=== PATIENT | female | born 1970 | race Caucasian/White ===

== ENCOUNTER 2017-01-26 08:04 | Outpatient (CLI) | payer BC | END 2017-01-26 08:05 | disposition home or self-care (01) | DX: E11.9 Type 2 diabetes mellitus without complications (principal); Z79.4 Long term (current) use of insulin; E78.2 Mixed hyperlipidemia; Z98.84 Bariatric surgery status; K91.2 Postsurgical malabsorption, not elsewhere classified ==

== ENCOUNTER 2017-05-17 11:44 | Emergency (ER) | payer BC ==
[2017-05-17] MEDS ORDERED: PROMETHAZINE INJ 25 MG in SODIUM CHLORIDE 0.9% 50 ML IV STA (14:38)
[2017-05-17] MEDS ORDERED: SODIUM CHLORIDE 0.9% 1,000 ML IV ONE (14:38)
[2017-05-17] MEDS ORDERED: HYDROmorphone 1 MG/ML SYRINGE IVP STA ×2 (14:39→15:49)
[2017-05-17] MEDS ORDERED: PROMETHAZINE 25 MG/1 ML VIAL ONE (14:40)
[2017-05-17] MEDS ORDERED: HYDROmorphone 1 MG/ML SYRINGE ONE ×2 (14:41→15:52)
--- NOTE | 2017-05-17 14:42 | ED Physician Documentation ---
History of Present Illness - Stated complaint Stated Complaint: COUGH/FEVER/VOMITING - Chief complaint Chief Complaint: General - History obtained from History obtained from: Patient - History of Present Illness Timing: Other (47-year-old woman with history of gastric bypass presents with fevers, body aches, skin crawling, nausea, vomiting, diarrhea since last night also cough. No sick contacts. Travel to [place] a month ago, no rash.) Review of Systems Ten Systems: 10 systems reviewed and negative Constitutional: reports: Fever, Chills, Myalgias, Fatigue Nose: denies: Rhinorrhea / runny nose Throat: denies: Sore throat Respiratory: reports: Cough. denies: Dyspnea GI: reports: Nausea, Vomiting, Diarrhea. denies: Abdominal Pain PD PAST MEDICAL HISTORY - Past Medical History Cardiovascular: High cholesterol Respiratory: None Neuro: None Endocrine/Autoimmune: Type 2 diabetes GI: GERD REFUGE MANAGER: None : None HEENT: None Psych: None Musculoskeletal: None Derm: None - Past Surgical History Past Surgical History: Yes General: Cholecystectomy, Gastric surgery /REFUGE MANAGER: section, Hysterectomy - Present Medications Home Medications: Ambulatory Orders Medication Instructions Recorded Confirmed Hormone Patch 1 patch ID DAILY 12/17/15 05/17/17 Escitalopram Oxalate [Lexapro] 20 mg PO DAILY 05/17/17 05/17/17 HYDROcod/ACETAM 5/325 [Barton 5/325] 1 - 2 ea PO Q6H PRN #15 tablet 05/17/17 Ondansetron HCl [Zofran] 4 mg PO Q6H PRN #10 tablet 05/17/17 Oseltamivir [Tamiflu] 75 mg PO BID #10 capsule 05/17/17 - Allergies Allergies/Adverse Reactions: Allergies Allergy/AdvReac Type Severity Reaction Status Date / Time lidocaine AdvReac Intermediate rapid Verified 05/17/17 11:56 heart rate morphine AdvReac Emesis Verified 05/17/17 11:56 - Social History Does the pt smoke?: No Smoking Status: Never smoker Does the pt drink ETOH?: Yes Does the pt have substance abuse?: No - Immunizations Immunizations are current?: Yes - POLST Patient has POLST: No PD ED PE NORMAL - Vitals Vital signs reviewed: Yes - General General: Alert and oriented X 3, No acute distress - HEENT HEENT: PERRL, EOMI, Pharynx benign - Neck Neck: Supple, no meningeal sign, No bony TTP - Cardiac Cardiac: RRR, No murmur - Respiratory Respiratory: No respiratory distress, Clear bilaterally - Abdomen Abdomen: Soft, Non tender - Derm Derm: Normal color, Warm and dry - Extremities Extremities: No edema, No calf tenderness / cord - Neuro Neuro: Alert and oriented X 3, Normal speech Results - Vitals Vitals: Vital Signs - 24 hr 05/17/17 05/17/17 11:55 14:16 Temperature 36.5 C 36.4 C L Heart Rate 93 74 Respiratory 18 16 Rate Blood Pressure 109/75 105/56 L O2 Saturation 97 95 Oxygen O2 Source Room air - Labs Labs: Laboratory Tests 05/17/17 05/17/17 14:56 14:56 Sodium 137 Potassium 3.8 Chloride 101 Carbon Dioxide 28 Anion Gap 8.0 BUN 14 Creatinine 0.7 Estimated GFR (MDRD) 90 Glucose 136 H Calcium 9.5 Total Bilirubin 0.7 AST 45 H ALT 66 H Alkaline Phosphatase 63 Total Protein 7.4 Albumin 4.2 Globulin 3.2 Albumin/Globulin Ratio 1.3 Lipase 26 Influenza A (Rapid) POSITIVE H Influenza B (Rapid) Negative Influenza Types A,B Ag + H PD MEDICAL DECISION MAKING - ED course ED course: 47-year-old woman presents with what sounds like a viral syndrome, very flulike , and is found to have influenza A. She is in with the time range for Tamiflu treatment and is given that. Feeling better after meds and fluids. Departure - Departure Disposition: 01 Home, Self Care Clinical Impression: Influenza A Condition: Good Record reviewed to determine appropriate education?: Yes Instructions: ED Flu Prescriptions: HYDROcod/ACETAM 5/325 [Barton 5/325] 1 - 2 ea PO Q6H PRN #15 tablet PRN Reason: Pain Oseltamivir [Tamiflu] 75 mg PO BID #10 capsule Ondansetron HCl [Zofran] 4 mg PO Q6H PRN #10 tablet PRN Reason: Nausea / Vomiting Forms: Activity restrictions
[2017-05-17 15:23] LABS: ALBUMIN/GLOBULIN RATIO 1.3 (1.0-2.2); BILIRUBIN,TOTAL 0.7 mg/dL (0.2-1.0); CALCIUM 9.5 mg/dL (8.5-10.3); CREATININE 0.7 mg/dL (0.4-1.0); POTASSIUM 3.8 mmol/L (3.5-5.0); TOTAL PROTEIN 7.4 g/dL (6.7-8.2)
[2017-05-17] MEDS ORDERED: OSELTAMIVIR 75 MG CAPSULE PO STA (15:49)
[2017-05-17] MEDS ORDERED: OSELTAMIVIR 75 MG CAPSULE PO ONE (15:52)
[2017-05-17 16:06] VITALS: BP 116/76
== END 2017-05-17 16:06 | disposition home or self-care (01) ==
LOC: ED 11:44
DX: J10.1 Influenza due to other identified influenza virus with other respiratory manifestations (principal); Z98.84 Bariatric surgery status; E78.00 Pure hypercholesterolemia, unspecified; E11.9 Type 2 diabetes mellitus without complications; K21.9 Gastro-esophageal reflux disease without esophagitis
CPT/HCPCS: 36415; 80053; 83690; 87275; 87276; 96374; 96375; 96376; 99283; 99284; A9270; J1170

== ENCOUNTER 2020-09-13 19:05 | Outpatient (CLI) | payer BC | END 2020-09-13 19:06 | disposition critical access hospital (66) | LOC: EMS 19:05 | PROVIDERS: ATTEND Surgery | DX: R19.7 Diarrhea, unspecified (principal); R50.9 Fever, unspecified; R23.2 Flushing | CPT/HCPCS: A0425; A0427 ==

== ENCOUNTER 2020-09-13 19:32 | Emergency (ER) | payer BC ==
[2020-09-13 19:43] LABS: GLUCOSE, URINE (UA) NEGATIVE (NEGATIVE); KETONES,URINE (UA) >=80 mg/dL (NEGATIVE); LEUKOCYTE ESTERASE, URINE NEGATIVE (NEGATIVE); NITRITE,URINE NEGATIVE (NEGATIVE); OCCULT BLOOD,URINE NEGATIVE (NEGATIVE); PROTEIN,URINE NEGATIVE (NEGATIVE); UROBILINOGEN,URINE 0.2 (NORMAL) E.U./dL (NORMAL)
[2020-09-13 19:44] LABS: CLARITY,URINE CLEAR (CLEAR)
[2020-09-13 19:46] LABS: BILIRUBIN,URINE NEGATIVE (NEGATIVE); ICTOTEST,URINE NEGATIVE
[2020-09-13 19:47] LABS: HCG UR QUAL NEGATIVE
[2020-09-13] MEDS ORDERED: PROMETHAZINE INJ 25 MG in SODIUM CHLORIDE 0.9% 50 ML IV STA (19:54)
--- NOTE | 2020-09-13 19:59 | ED Physician Documentation ---
History of Present Illness - Stated complaint Stated Complaint: NAUSEA/ FEVER - Chief complaint Chief Complaint: Abd Pain - History obtained from History obtained from: Patient - Additonal information Additional information: Patient comes emergency department complaining of heavy diarrhea all day long. She states it started this morning and she did not think too much of it, as she has had other episodes of diarrhea since starting her current oral diabetes medication. She states that as the day wore on, she began to feel more and more nauseated and though she did not vomit, did not eat anything after breakfast. For breakfast she had had an egg, a couple of grapes, and a bite of chicken, and did not feel like eating anything beyond this. She states that she has had multiple episodes of diarrhea throughout the afternoon and evening, and that her diarrhea is now watery. She has not noticed any blood in the effluent. Patient states she has had some cramping throughout her abdomen with episodes of diarrhea, but denies any pain beyond that. She states she has had a burning sensation in her skin, but has not noticed a rash. Patient denies any sick contacts. Nobody else with the same food is her is sick. Patient was not aware of having a fever until the medics to checked her temperature, which was found to be 100 F by their measurement. Her blood sugar was 146. The patient states that other than the diabetes, she is pretty healthy. She has had a gastric bypass, which she states was for the diabetes. She has had trouble with multiple agents, and currently is on monotherapy. No other complaints at this time. Review of Systems Ten Systems: 10 systems reviewed and negative Constitutional: reports: Fever Eyes: reports: Reviewed and negative Ears: reports: Reviewed and negative Nose: reports: Reviewed and negative. denies: Rhinorrhea / runny nose, Congestion Throat: reports: Reviewed and negative Cardiac: reports: Reviewed and negative Respiratory: reports: Reviewed and negative. denies: Cough GI: reports: Abdominal Pain (Cramping), Nausea, Diarrhea, Reviewed and negative. denies: Vomiting : reports: Reviewed and negative. denies: Dysuria, Frequency Skin: reports: Reviewed and negative Musculoskeletal: reports: Reviewed and negative Neurologic: reports: Reviewed and negative Psychiatric: reports: Reviewed and negative Endocrine: reports: Reviewed and negative Immunocompromised: reports: Reviewed and negative PD PAST MEDICAL HISTORY - Past Medical History Past Medical History: Yes Cardiovascular: High cholesterol Respiratory: None Endocrine/Autoimmune: Type 2 diabetes GI: GERD, Other SCANNING COORDINATOR: None : None HEENT: None Psych: None Musculoskeletal: None Derm: None Other Past Medical History: IBS - Past Surgical History Past Surgical History: Yes General: Cholecystectomy, Gastric surgery /SCANNING COORDINATOR: section, Hysterectomy - Present Medications Home Medications: Ambulatory Orders Medication Instructions Recorded Confirmed Hormone Patch 1 patch ID DAILY 12/17/15 05/17/17 Escitalopram Oxalate [Lexapro] 20 mg PO DAILY 05/17/17 05/17/17 HYDROcod/ACETAM 5/325 [[place] 5/325] 1 - 2 ea PO Q6H PRN #15 tablet 05/17/17 Ondansetron HCl [Zofran] 4 mg PO Q6H PRN #10 tablet 05/17/17 Oseltamivir [Tamiflu] 75 mg PO BID #10 capsule 05/17/17 Ondansetron Odt [Zofran] 4 mg TL Q6H PRN #10 tablet 09/13/20 Promethazine Supp [Phenergan Supp] 25 mg LA Q6HR PRN #12 supp 09/13/20 - Allergies Allergies/Adverse Reactions: Allergies Allergy/AdvReac Type Severity Reaction Status Date / Time lidocaine AdvReac Intermediate rapid Verified 09/13/20 19:42 heart rate morphine AdvReac Emesis Verified 09/13/20 19:42 - Social History Does the pt smoke?: No Smoking Status: Never smoker Does the pt drink ETOH?: Yes Does the pt have substance abuse?: No - Immunizations Immunizations are current?: Yes - POLST Patient has POLST: No PD ED PE NORMAL - Vitals Vital signs reviewed: Yes - General General: Alert and oriented X 3, Other (Patient appears moderately uncomfortable but otherwise in no apparent distress.) - HEENT HEENT: Atraumatic, PERRL, EOMI, Moist mucous membranes - Neck Neck: Supple, no meningeal sign - Cardiac Cardiac: No murmur, Other (Tachycardic, with regular rhythm.) - Respiratory Respiratory: No respiratory distress, Clear bilaterally - Abdomen Abdomen: Soft, Non tender, Non distended - Derm Derm: Normal color, Warm and dry, No rash - Extremities Extremities: No deformity, No edema, No calf tenderness / cord - Neuro Neuro: Alert and oriented X 3, college president 2-12 intact, Normal speech, Other (Grossly normal) - Psych Psych: Normal mood, Normal affect Results - Vitals Vitals: Vital Signs - 24 hr 09/13/20 09/13/20 09/13/20 19:42 19:46 19:57 Temperature 38.3 C H 38.3 C H 38.3 C H Heart Rate 118 H 118 H 119 H Respiratory 16 16 Rate Blood Pressure 128/69 128/69 128/70 O2 Saturation 98 98 100 09/13/20 09/13/20 21:45 22:45 Temperature 37.9 C H 37.9 C H Heart Rate 90 98 Respiratory 16 16 Rate Blood Pressure 122/68 110/62 O2 Saturation 100 98 Oxygen O2 Source Room air - Labs Labs: Laboratory Tests 09/13/20 09/13/20 09/13/20 19:39 19:39 20:09 WBC 12.1 H RBC 4.47 Hgb 12.8 Hct 38.0 MCV 85.0 MCH 28.6 MCHC 33.7 RDW 12.7 Plt Count 186 MPV 9.1 Neut # (Auto) 10.5 H Lymph # (Auto) 0.7 L Towns # (Auto) 0.8 Eos # (Auto) 0.0 Baso # (Auto) 0.1 Absolute Nucleated RBC 0.00 Nucleated RBC % 0.0 Sodium Potassium Chloride Carbon Dioxide Anion Gap BUN Creatinine Estimated GFR (MDRD) Glucose Lactic Acid Calcium Total Bilirubin AST ALT Alkaline Phosphatase Total Protein Albumin Globulin Albumin/Globulin Ratio Urine Color DARK YELLOW Urine Clarity CLEAR Urine pH 5.0 Ur Specific [place] >=1.030 H >=1.030 H Urine Protein NEGATIVE Urine Glucose (UA) NEGATIVE Urine Ketones >=80 H Urine Occult Blood NEGATIVE Urine Nitrite NEGATIVE Urine Bilirubin NEGATIVE Urine Urobilinogen 0.2 (NORMAL) Ur Leukocyte Esterase NEGATIVE Ur Microscopic Review NOT INDICATED Urine HCG, Qual NEGATIVE Influenza A (Rapid) Influenza B (Rapid) 09/13/20 09/13/20 09/13/20 20:09 20:09 20:53 WBC RBC Hgb Hct MCV MCH MCHC RDW Plt Count MPV Neut # (Auto) Lymph # (Auto) Towns # (Auto) Eos # (Auto) Baso # (Auto) Absolute Nucleated RBC Nucleated RBC % Sodium 139 Potassium 3.3 L Chloride 107 Carbon Dioxide 22 Anion Gap 10.0 BUN 18 Creatinine 0.7 Estimated GFR (MDRD) 89 Glucose 176 H Lactic Acid 1.1 Calcium 8.9 Total Bilirubin 0.6 AST 19 ALT 36 Alkaline Phosphatase 57 Total Protein 6.8 Albumin 4.2 Globulin 2.6 Albumin/Globulin Ratio 1.6 Urine Color Urine Clarity Urine pH Ur Specific [place] Urine Protein Urine Glucose (UA) Urine Ketones Urine Occult Blood Urine Nitrite Urine Bilirubin Urine Urobilinogen Ur Leukocyte Esterase Ur Microscopic Review Urine HCG, Qual Influenza A (Rapid) Negative Influenza B (Rapid) Negative PD MEDICAL DECISION MAKING - ED course Complexity details: reviewed results, re-evaluated patient, considered differential, d/w patient ED course: The patient was worked up with labs, urinalysis, and stool culture, and was treated with IV fluids, Phenergan, and Tylenol. She had already received Zofran in route and was still nauseated after this. Pt's labs, overall, looked good. Her glucose was 176, but anion gap and bicarb were normal. Lactic acid level was also normal. The pt received a second liter of IV fluid. She was feeling much better on re-evaluation, and I did not find a specific cause for her sx. I suspect that the pt has one of the common viruses, but due to her diabetes and the general concern over covid, I have also sent a covid swab and blood cx. UA and influenze testing are negative. We have discussed the pt's need to quarantine until she gets her results back. We have discussed nausea treatment at home and clear liquid diet. We have discussed the usual indications for return. Departure - Departure Disposition: 01 Home, Self Care Clinical Impression: Gastroenteritis Condition: Stable Instructions: ED Gastroenteritis Vs Food Poison Prescriptions: Promethazine Supp [Phenergan Supp] 25 mg LA Q6HR PRN #12 supp PRN Reason: Nausea / Vomiting Ondansetron Odt [Zofran] 4 mg TL Q6H PRN #10 tablet PRN Reason: Nausea / Vomiting Comments: Your labs, overall, look good. There is no evidence of a serious cause of your symptoms at this time. However, blood cultures and a Covid test are pending. Although your symptoms are most likely secondary to one of the common gastrointestinal viruses, Covid is still a possibility, and you should quarantine until you get your results. Assuming a common viral illness, the worst of your symptoms should be done within 24 to 48 hours. It may take several days after this for your system to fully recover. As such, for the next 12 hours, you should take clear liquids only. If you tolerate these well, you may then progress to small amounts of simple starches, such as saltine crackers, Ramen noodles, or white rice. If you tolerate these in without vomiting or diarrhea, then you may progress as tolerated from there. If your initial attempts at taking simple starches are not tolerated well, is and you have severe nausea, vomiting, or severe diarrhea, then wait another 12 hours to try any further solid food. Discharge Date/Time: 09/13/20 23:01
[2020-09-13] MEDS ORDERED: PROMETHAZINE 25 MG/1 ML VIAL ONE (20:08)
[2020-09-13 20:20] LABS: BASOPHILS # (AUTO) 0.1 10^3/uL (0.0-0.1); BASOPHILS % (AUTO) 0.4 %; EOSINOPHILS % (AUTO) 0.2 %; HGB - HEMOGLOBIN 12.8 g/dL (12.0-16.0); LYMPHOCYTES # (AUTO) 0.7 10^3/uL (1.5-3.5); LYMPHOCYTES % (AUTO) 5.5 %; MEAN CORPUSCULAR HEMOGLOBIN 28.6 pg (27.0-31.0); MEAN CORPUSCULAR HGB CONC 33.7 g/dL (32.0-36.0); MEAN PLATELET VOLUME 9.1 fL (7.9-10.8); MONOCYTES # (AUTO) 0.8 10^3/uL (0.0-1.0); MONOCYTES % (AUTO) 6.2 %; NEUTROPHILS # (AUTO) 10.5 10^3/uL (1.5-6.6); NEUTROPHILS % (AUTO) 87.3 %; PLT - PLATELET COUNT 186 10^3/uL (130-450); RED BLOOD COUNT 4.47 10^6/uL (4.20-5.40); RED CELL DISTRIBUTION WIDTH 12.7 % (12.0-15.0); WHITE BLOOD COUNT 12.1 x10^3/uL (4.8-10.8)
[2020-09-13 20:33] LABS: ALBUMIN 4.2 g/dL (3.2-5.5); ALBUMIN/GLOBULIN RATIO 1.6 (1.0-2.2); BILIRUBIN,TOTAL 0.6 mg/dL (0.2-1.0); CALCIUM 8.9 mg/dL (8.5-10.3); CREATININE 0.7 mg/dL (0.4-1.0); TOTAL PROTEIN 6.8 g/dL (6.7-8.2)
[2020-09-13] MEDS ORDERED: SODIUM CHLORIDE 0.9% 1,000 ML IV STA (21:07)
[2020-09-13] MEDS ORDERED: ACETAMINOPHEN 325 MG TABLET PO STA (21:09)
[2020-09-13 22:46] VITALS: BP 110/62
[2020-09-13] MEDS ORDERED: ONDANSETRON ODT 4 MG Prepack 2 TL PRN (22:47)
== END 2020-09-13 23:01 | disposition home or self-care (01) ==
LOC: EDBD → EDUNIT# → ED 19:32
DX: K52.9 Noninfective gastroenteritis and colitis, unspecified (principal); E11.9 Type 2 diabetes mellitus without complications; Z79.84 Long term (current) use of oral hypoglycemic drugs; Z20.828 Contact with and (suspected) exposure to other viral communicable diseases
CPT/HCPCS: 36415; 80053; 81003; 81025; 83605; 85025; 87040; 87275; 87276; 87635; 96365; 99284; A9270; J7040; 81001; 87086; 87798

== ENCOUNTER 2023-03-04 15:45 | Emergency (ER) | payer BC ==
[2023-03-04] MEDS ORDERED: MECLIZINE 12.5 MG TABLET PO STA (16:36)
--- NOTE | 2023-03-04 16:39 | ED Physician Documentation ---
PD HPI FOCAL NEURO - Stated complaint Stated Complaint: DIZZY,NAUSEA - Chief complaint Chief Complaint: Neuro - History obtained from History obtained from: Patient - Additional information Additional information: 53-year-old woman with history of gastric bypass and type 2 diabetes well controlled on Ozempic presents with constant vertigo starting yesterday. It is worse if she turns her head. She is nauseous but has not vomited. She has no history of vertigo. PD PAST MEDICAL HISTORY - Past Medical History Cardiovascular: High cholesterol Respiratory: None Endocrine/Autoimmune: Type 2 diabetes GI: GERD, Other SHEAR TENDER: None : None HEENT: None Psych: None Musculoskeletal: None Derm: None - Past Surgical History Past Surgical History: Yes General: Cholecystectomy, Gastric surgery /SHEAR TENDER: section, Hysterectomy - Present Medications Home Medications: Ambulatory Orders Medication Instructions Recorded Confirmed Hormone Patch 1 patch ID DAILY 12/17/15 05/17/17 Escitalopram Oxalate [Lexapro] 20 mg PO DAILY 05/17/17 05/17/17 HYDROcod/ACETAM 5/325 [Rocky 5/325] 1 - 2 ea PO Q6H PRN #15 tablet 05/17/17 Oseltamivir [Tamiflu] 75 mg PO BID #10 capsule 05/17/17 ondansetron HCL [Zofran] 4 mg PO Q6H PRN #10 tablet 05/17/17 Ondansetron Odt [Zofran] 4 mg TL Q6H PRN #10 tablet 09/13/20 Promethazine Supp [Phenergan Supp] 25 mg [place] Q6HR PRN #12 supp 09/13/20 Ondansetron Odt [Zofran] 4 mg TL Q6H PRN #10 tablet 07/05/22 cephALEXin [Keflex] 500 mg PO TID 7 Days #20 cap 07/05/22 Meclizine HCl [Motion Sickness] 25 mg PO Q6H PRN #20 tablet 03/04/23 - Allergies Allergies/Adverse Reactions: Allergies Allergy/AdvReac Type Severity Reaction Status Date / Time lidocaine AdvReac Intermediate rapid Verified 03/04/23 16:05 heart rate morphine AdvReac Emesis Verified 03/04/23 16:05 - Social History Does the pt smoke?: No Smoking Status: Never smoker Does the pt drink ETOH?: Yes Does the pt have substance abuse?: No - Immunizations Immunizations are current?: Yes - POLST Patient has POLST: No PD ED PE NORMAL - Vitals Vital signs reviewed: Yes - General General: Alert and oriented X 3, No acute distress - HEENT HEENT: PERRL, EOMI, Other (Negative Cristi-Hallpike maneuver, no nystagmus although she is symptomatic on exam.) - Neck Neck: Supple, no meningeal sign, No bony TTP - Cardiac Cardiac: RRR, No murmur - Respiratory Respiratory: No respiratory distress, Clear bilaterally - Abdomen Abdomen: Non tender - Back Back: No CVA TTP, No spinal TTP - Derm Derm: Normal color, Warm and dry - Neuro Neuro: Alert and oriented X 3, rough rounder 2-12 intact, No motor deficit, No sensory deficit, Normal speech, Other (Normal fgwnpx-ke-vgyn and ednm-rc-yoat testing) Eye Opening: Spontaneous Motor: Obeys Commands Verbal: Oriented GCS Score: 15 Results - Vitals Vitals: Vital Signs - 24 hr 03/04/23 03/04/23 15:50 16:05 Temperature 36.5 C Heart Rate 79 68 Respiratory 18 14 Rate Blood Pressure 134/77 H 138/81 H O2 Saturation 100 100 Oxygen O2 Source Room air - EKG (time done) 1557 EKG releavant findings:: EKG personally interpreted by author of this note. Relevant findings are: Rate: Rate (enter#) (66) Rhythm: NSR Mobile: Normal Intervals: Normal MN QRS: Normal Ischemia: Normal ST segments - Labs Labs: Laboratory Tests 03/04/23 03/04/23 17:01 17:01 WBC 5.5 RBC 4.63 Hgb 13.3 Hct 40.1 MCV 86.6 MCH 28.7 MCHC 33.2 RDW 11.9 L Plt Count 265 MPV 9.6 Neut # (Auto) 2.6 Lymph # (Auto) 2.4 [place] # (Auto) 0.3 Eos # (Auto) 0.1 Baso # (Auto) 0.0 Absolute Nucleated RBC 0.00 Nucleated RBC % 0.0 Sodium 142 Potassium 3.5 Chloride 103 Carbon Dioxide 30 Anion Gap 9.0 BUN 14 Creatinine 0.8 Estimated GFR (MDRD) 75 L Glucose 112 H Calcium 9.4 - Rads (name of study) CT angiography of the head is unremarkable. Relevant Findings:: Final report received, EMP independent interpretation of test CTA neck - neg Relevant Findings:: Final report received, EMP independent interpretation of test PD Medical Decision Making - ED course ED course: 53-year-old woman presents with constant vertigo for the last 36 hours with an otherwise normal exam. That said she does not have nystagmus while being symptomatic and has a negative Cristi-Hallpike maneuver and she had already tried an Karly maneuver at home which was unsuccessful. This is concerning for a central cause of vertigo. As such, initially an MRI was ordered. Unfortunately our windows laptop technician had gone home a bit early and we could not perform this on the first date of service. We pivoted and performed CT angiography of the head and neck. CT angiography of the head and neck was negative and she felt somewhat better after meclizine. We used shared decision-making to decide disposition, I do think she could probably use an expedited MRI and she would like to go home and return in the morning for same. She was offered observation in the hospital for same but declined. Departure - Departure Disposition: 01 Home, Self Care Clinical Impression: Vertigo Condition: Good Record reviewed to determine appropriate education?: Yes Instructions: ED Vertigo Unspecified Prescriptions: Meclizine HCl [Motion Sickness] 25 mg PO Q6H PRN #20 tablet PRN Reason: Dizziness Comments: CT angiography of the head neck was unremarkable. That said there is still concern that this could be a central cause of vertigo and I encourage you to return tomorrow morning first thing for reevaluation and potential MRI. Probably best if you just leave your jewelry at home. Return sooner for new or worsening symptoms. To clarify make sure the front counter attendant knows that you are checking into the emergency department. Not just just here for an MRI.
[2023-03-04] MEDS ORDERED: iohexoL-300 100 ML VIAL ONE (16:57)
[2023-03-04 17:06] LABS: BASOPHILS % (AUTO) 0.7 %; EOSINOPHILS # (AUTO) 0.1 10^3/uL (0.0-0.7); EOSINOPHILS % (AUTO) 2.2 %; HCT - HEMATOCRIT 40.1 % (37.0-47.0); HGB - HEMOGLOBIN 13.3 g/dL (12.0-16.0); LYMPHOCYTES # (AUTO) 2.4 10^3/uL (1.5-3.5); LYMPHOCYTES % (AUTO) 43.2 %; MEAN CORPUSCULAR HEMOGLOBIN 28.7 pg (27.0-31.0); MEAN CORPUSCULAR HGB CONC 33.2 g/dL (32.0-36.0); MEAN CORPUSCULAR VOLUME 86.6 fL (81.0-99.0); MEAN PLATELET VOLUME 9.6 fL (7.9-10.8); MONOCYTES # (AUTO) 0.3 10^3/uL (0.0-1.0); NEUTROPHILS # (AUTO) 2.6 10^3/uL (1.5-6.6); NEUTROPHILS % (AUTO) 47.7 %; PLT - PLATELET COUNT 265 10^3/uL (130-450); RED BLOOD COUNT 4.63 10^6/uL (4.20-5.40); RED CELL DISTRIBUTION WIDTH 11.9 % (12.0-15.0); WHITE BLOOD COUNT 5.5 x10^3/uL (4.8-10.8)
[2023-03-04 17:14] LABS: CALCIUM 9.4 mg/dL (8.5-10.3); CREATININE 0.8 mg/dL (0.4-1.0); POTASSIUM 3.5 mmol/L (3.5-5.0)
--- NOTE | 2023-03-04 18:04 | CT Report ---
PROCEDURE: ANGIO HEAD W/WO INDICATIONS: vertigo CONTRAST: 80mL Omni 300 TECHNIQUE: Precontrast 4.5 mm thick angled axial sections acquired from the foramen magnum to the vertex. Afte r the administration of intravenous contrast, 1 mm thick sections acquired through the [place] of [place] is. Postcontrast 4.5 mm thick sections then re-acquired from the foramen magnum to the vertex. 3-di mensional exczgkj-gewxebfqe-nsswxhkxsg (MIP) and/or volume rendering reformats were acquired of the c entral intracranial vasculature. For radiation dose reduction, the following was used: automated ex posure control, adjustment of mA and/or kV according to patient size. COMPARISON: Noncontrast CT head 12/18/2015. FINDINGS: Image quality: Excellent. Anterior circulation: Intracranial internal carotid arteries are normal in size and flow. The flow within the paired anterior cerebral arteries is normal and symmetric. The flow within the middle cer ebral arteries is normal and symmetric. The anterior communicating artery is seen. No aneurysms are seen. Posterior circulation: Visualized portions of the vertebral arteries demonstrate normal caliber, and join to form a normal appearing basilar artery. Flow within the posterior cerebral arteries is norm al and symmetric. No aneurysms are seen. CSF spaces: Ventricles are normal in size and shape. Basal cisterns are patent. No extra-axial flu id collections. Brain: No midline shift. No intracranial bleeds or masses. Gutierrez-white matter interface appears int act. Skull and face: Calvarium and facial bones appear intact, without suspicious lesions. Sinuses: Visualized sinuses and mastoids are clear. IMPRESSION: 1. No acute intracranial hemorrhage. 2. No large vessel occlusion. No infarct demonstrated. Reviewed by: Rickie Camarillo MD on 03/04/2023 6:03 PM PDT Approved by: Rickie Camarillo MD on 03/04/2023 6:03 PM PDT Station ID: [id number]
--- NOTE | 2023-03-04 18:09 | CT Report ---
PROCEDURE: ANGIO NECK W INDICATIONS: vertigo CONTRAST: 80mL Omni 300 TECHNIQUE: After the administration of intravenous contrast, 1.5 mm axial sections acquired from the aortic arch to the [place] of [place]. Coronal 3-D maximum intensity projection (MIP) and/or volume rendering ref ormats were then performed. For radiation dose reduction, the following was used: automated exposur e control, adjustment of mA and/or kV according to patient size. COMPARISON: Same-day CT angiogram head. FINDINGS: Image quality: Excellent. Carotid system: The great vessels demonstrate a conventional anatomy as they arise from the aortic a rch. The origins of the common carotid arteries appear patent. The common carotid arteries demonstr ate normal calibers and courses. The bifurcation regions appear normal bilaterally. No calcified marvin que at the carotid bulbs. The internal carotid arteries demonstrate normal caliber and course. Posterior circulation: The origins of the vertebral arteries appear patent. The more superior porti ons of the vertebral arteries demonstrate normal course and caliber. They join to form a normal appe aring basilar artery. Soft tissues: Visualized neck soft tissues demonstrate no suspicious abnormalities. The thyroid is normal in size and there are no incidental findings. Bones: No suspicious bony lesions. Visualized cervical spine appears normally aligned. IMPRESSION: No large vessel occlusion. No critical stenosis. The estimate of stenosis included in the report of the imaging study was calculated using the NASCET method Reviewed by: Rickie Camarillo MD on 03/04/2023 6:08 PM PDT Approved by: Rickie Camarillo MD on 03/04/2023 6:08 PM PDT Station ID: [id number]
[2023-03-04 18:51] VITALS: BP 122/79
[2023-03-04] MEDS ORDERED: iohexoL-300 100 ML VIAL IVP ONE (20:31)
== END 2023-03-04 18:51 | disposition home or self-care (01) ==
LOC: ED 15:45
DX: R42 Dizziness and giddiness (principal)
CPT/HCPCS: 36415; 70496; 70498; 80048; 85025; 93005; 99284; A9270; Q9967

== ENCOUNTER 2023-03-05 08:01 | Emergency (ER) | payer BC ==
[2023-03-05] MEDS ORDERED: MECLIZINE 12.5 MG TABLET PO STA (08:25)
[2023-03-05] MEDS ORDERED: SODIUM CHLORIDE 0.9% 1,000 ML IV STA (08:26)
--- NOTE | 2023-03-05 09:01 | ED Physician Documentation ---
History of Present Illness - Stated complaint Stated Complaint: DIZZINESS, NAUSEA - Chief complaint Chief Complaint: Neuro - History obtained from History obtained from: Patient - Additonal information Additional information: Patient is a 53-year-old female with a history of [id number] diabetes presenting for evaluation of constant vertigo starting Thursday morning when she woke up. She reports it feels worse when she turns her head and seems like she notices more symptoms when turning to the left. She reports nausea but no vomiting. She denies a prior history of vertigo. She was seen yesterday in the emergency department for the symptoms with work-up to include an EKG, CBC, chemistries, CT angio head and neck without any significant findings. She received meclizine. She reported a little improvement in her symptoms.The plan was to obtain an MRI but deployment technician had left early for the day so it was not completed. She was offered overnight observation in the emergency department versus returning this morning and she has opted to return this morning for her MRI. She reports still feeling the same vertigo. She has not filled her meclizine prescription. She denies any worsening of her symptoms. She denies any new associated symptoms. Review of Systems Constitutional: denies: Fever Ears: reports: Ear pain (L) Cardiac: denies: Chest pain / pressure Respiratory: denies: Dyspnea GI: denies: Abdominal Pain Neurologic: denies: Focal weakness PD PAST MEDICAL HISTORY - Past Medical History Past Medical History: Yes Cardiovascular: High cholesterol Respiratory: None Endocrine/Autoimmune: Type 2 diabetes GI: GERD, Other PENCIL MAKER: None : None HEENT: None Psych: None Musculoskeletal: None Derm: None - Past Surgical History Past Surgical History: Yes General: Cholecystectomy, Gastric surgery /PENCIL MAKER: section, Hysterectomy - Present Medications Home Medications: Ambulatory Orders Medication Instructions Recorded Confirmed Hormone Patch 1 patch ID DAILY 12/17/15 05/17/17 Escitalopram Oxalate [Lexapro] 20 mg PO DAILY 05/17/17 05/17/17 HYDROcod/ACETAM 5/325 [Jolley 5/325] 1 - 2 ea PO Q6H PRN #15 tablet 05/17/17 Oseltamivir [Tamiflu] 75 mg PO BID #10 capsule 05/17/17 ondansetron HCL [Zofran] 4 mg PO Q6H PRN #10 tablet 05/17/17 Ondansetron Odt [Zofran] 4 mg TL Q6H PRN #10 tablet 09/13/20 Promethazine Supp [Phenergan Supp] 25 mg AR Q6HR PRN #12 supp 09/13/20 Ondansetron Odt [Zofran] 4 mg TL Q6H PRN #10 tablet 07/05/22 cephALEXin [Keflex] 500 mg PO TID 7 Days #20 cap 07/05/22 Meclizine HCl [Motion Sickness] 25 mg PO Q6H PRN #20 tablet 03/04/23 Ondansetron Odt [Zofran] 4 mg TL Q6H PRN #10 tablet 03/05/23 predniSONE [Deltasone] 20 mg PO [id number] #21 tab 03/05/23 - Allergies Allergies/Adverse Reactions: Allergies Allergy/AdvReac Type Severity Reaction Status Date / Time lidocaine AdvReac Intermediate rapid Verified 03/05/23 08:12 heart rate morphine AdvReac Emesis Verified 03/05/23 08:12 - Social History Does the pt smoke?: No Smoking Status: Never smoker Does the pt drink ETOH?: Yes Does the pt have substance abuse?: No - Immunizations Immunizations are current?: Yes - POLST Patient has POLST: No PD ED PE NORMAL - General General: Alert and oriented X 3, No acute distress, Well developed/nourished - HEENT HEENT: Atraumatic, PERRL, EOMI (No nystagmus), Ears normal, Moist mucous membranes, Pharynx benign (Tongue is midline) - Neck Neck: Supple, no meningeal sign - Cardiac Cardiac: RRR, No murmur - Respiratory Respiratory: No respiratory distress, Clear bilaterally - Abdomen Abdomen: Soft, Non tender - Derm Derm: Warm and dry - Extremities Extremities: No edema - Neuro Neuro: Alert and oriented X 3, geoscience technician 2-12 intact, No motor deficit, No sensory deficit, Normal speech, Other (Normal [id number] bilaterally) Results - Vitals Vitals: Vital Signs - 24 hr 03/05/23 03/05/23 03/05/23 08:10 10:12 12:00 Temperature 36.4 C L Heart Rate 88 69 72 Respiratory 20 13 12 Rate Blood Pressure 112/70 102/68 130/65 O2 Saturation 99 100 100 Oxygen O2 Source Room air PD Medical Decision Making - ED course Complexity details: reviewed results, re-evaluated patient, d/w patient ED course: Patient is a 53-year-old presenting for evaluation of dizziness that has been present for the past 48 hours. Her work-up was initiated yesterday through the emergency department where she had labs, EKG and CT angio of her head and neck. She was directed to come back to the emergency department today for an MRI to evaluate for a stroke.Her symptoms have unchanged. She is able to ambulate. There are no other focal findings. Her vital signs appear stable.An MRI without contrast was ordered which I reviewed and shows no findings to suggest a stroke.We discussed other etiologies of vertigo which could include vestibular neuritis or labyrinthitis. We discussed other options for treatment of her vertigo And she is agreeable to trial of steroids in the event this is related to a labyrinth-itis or vestibular neuritis.She is a zog-pmquyrj-lqfrzcpvg diabetic. She understands the need to check her sugars more frequently. She is also advised on need for close follow-up with her PCP as and advised on concerning symptoms to return for. Departure - Departure Disposition: Home, Self Care Clinical Impression: Vertigo Condition: Stable Instructions: ED Vertigo Unspecified Follow-Up: [facility] [Provider Group] Prescriptions: predniSONE [Deltasone] 20 mg PO [id number] #21 tab Ondansetron Odt [Zofran] 4 mg TL Q6H PRN #10 tablet PRN Reason: Nausea / Vomiting Comments: MRI of your brain does not show any signs of a stroke. There are other causes fo r vertigo other than a stroke or positional vertigo. With some of these other causes a course of steroids may be beneficial. Steroids may increase your blood sugar while you are on them. Please continue to keep a close eye on your blood sugars.I have sent a prescription for a prednisone taper and antinausea medications to [facility] in [place]. I would recommend close follow-up with your PCP in the next week. If you develop any worsening symptoms such as worsening vertigo, vomiting or have any new concerns please return to the emergency department. Your prescriptions were sent to [email or web address] in [place]. IMPRESSION: 1. No acute intracranial abnormality. 2. Normal MRI of the brain. Forms: Activity restrictions Discharge Date/Time: 03/05/23 12:51
[2023-03-05 12:07] VITALS: BP 130/65
--- NOTE | 2023-03-05 12:26 | MRI Report ---
PROCEDURE: BRAIN WO INDICATIONS: dizziness TECHNIQUE: Noncontrast axial T1 spin echo, axial T2 fast spin echo, sagittal and axial FLAIR, coronal T2 fast sp in echo, axial gradient echo, axial diffusion and ADC through the brain. COMPARISON: None. FINDINGS: Image quality: Excellent. CSF Spaces: Basal cisterns are patent. No extra-axial fluid collections. Ventricles are normal in size and shape. Brain: No intracranial masses or hemorrhage. Gutierrez/white matter interface is normal. Brainstem appe ars normal. Diffusion-weighted images demonstrate no acute ischemic insult. No chronic ischemic ins ults. Normal intravascular flow voids are present. Skull and face: Calvarium has normal marrow signal. Orbits appear normal. Sinuses: Sinuses and mastoids are clear. IMPRESSION: 1. No acute intracranial abnormality. 2. Normal MRI of the brain. Reviewed by: Hema Alarcon on 03/05/2023 12:25 PM PDT Approved by: Hema Alarcon on 03/05/2023 12:25 PM PDT Station ID: [id number]
== END 2023-03-05 12:51 | disposition home or self-care (01) ==
LOC: ED 08:01
DX: R42 Dizziness and giddiness (principal); E11.9 Type 2 diabetes mellitus without complications
CPT/HCPCS: 70551; 99283; 99284; A9270